=== PATIENT | female | born 1985 | race American Indian/Alaskan Native ===

== ENCOUNTER 2016-06-26 20:28 | Emergency (ER) | payer OTHER ==
[2016-06-26] MEDS ORDERED: TYLENOL PO ONE (21:29)
[2016-06-26] MEDS ORDERED: TYLENOL ONE (21:29)
--- NOTE | 2016-06-27 00:28 | Emergency Department Report ---
- General Chief Complaint: Pain General Stated Complaint: SORE THROAT/BODY ACHES/HEADACHE Time Seen by Provider: 06/26/16 23:54 Source: patient Mode of arrival: Ambulatory Limitations: No Limitations - History of Present Illness Initial Comments: Patient complains of sudden onset of nasal congestion, sneezing, scratchy throat , generalized body aches yesterday morning. Denies other associated symptoms including fever, chills, nausea, vomiting, cough, headaches, dizziness or blurred vision, developmental flank pain, female symptoms. States no relief with baby Motrin x 1. Reports feeling perfectly fine the day/night prior. Patient has high blood pressure pressure for which she takes amlodipine for. Denies signs and symptoms of elevated blood pressure. LMP 06/05/16. - Related Data Home Medications Medication Instructions Recorded Confirmed Last Taken amLODIPine [Norvasc] 5 mg PO DAILY 02/28/16 06/26/16 06/26/16 Previous Rx's Medication Instructions Recorded Last Taken Type Ibuprofen [Motrin] 600 mg PO Q8H PRN #15 tablet 06/27/16 Unknown Rx Loratadine/Pseudoephedrine 1 tab PO Q12H #30 tablet 06/27/16 Unknown Rx [Claritin-D 12HR] Allergies Allergy/AdvReac Type Severity Reaction Status Date / Time No Known Allergies Allergy Verified 03/08/15 21:48 ED Review of Systems ROS: Stated complaint: SORE THROAT/BODY ACHES/HEADACHE Other details as noted in HPI Comment: All other systems reviewed and negative ED Past Medical Hx - Past Medical History Previous Medical History?: Yes Hx Hypertension: Yes - Surgical History Past Surgical History?: No - Social History Smoking Status: Never Smoker Substance Use Type: None - Medications Home Medications: Home Medications Medication Instructions Recorded Confirmed Last Taken Type amLODIPine [Norvasc] 5 mg PO DAILY 02/28/16 06/26/16 06/26/16 History Ibuprofen [Motrin] 600 mg PO Q8H PRN #15 tablet 06/27/16 Unknown Rx Loratadine/Pseudoephedrine 1 tab PO Q12H #30 tablet 06/27/16 Unknown Rx [Claritin-D 12HR] ED Physical Exam - General Limitations: No Limitations General appearance: alert, in no apparent distress - Head Head exam: Present: atraumatic, normocephalic, normal inspection - Eye Eye exam: Present: normal appearance, PERRL, EOMI - ENT ENT exam: Present: normal exam, normal orophraynx, mucous membranes moist, TM's normal bilaterally, normal external ear exam - Neck Neck exam: Present: normal inspection, full ROM. Absent: tenderness, meningismus, lymphadenopathy - Respiratory Respiratory exam: Present: normal lung sounds bilaterally. Absent: respiratory distress, wheezes, rales, rhonchi, stridor, chest wall tenderness, accessory muscle use, decreased breath sounds, prolonged expiratory - Cardiovascular Cardiovascular Exam: Present: regular rate, normal rhythm - GI/Abdominal GI/Abdominal exam: Present: soft, normal bowel sounds. Absent: distended, tenderness - Extremities Exam Extremities exam: Present: normal inspection, full ROM. Absent: tenderness - Back Exam Back exam: Present: normal inspection. Absent: tenderness, CVA tenderness (R), CVA tenderness (L) - Neurological Exam Neurological exam: Present: alert, oriented X3, normal gait, reflexes normal. Absent: motor sensory deficit - Psychiatric Psychiatric exam: Present: normal affect, normal mood - Skin Skin exam: Present: warm, dry, intact, normal color. Absent: rash, cyanosis, diaphoretic, erythema, petechiae, pallor ED Course Vital Signs 06/26/16 06/26/16 06/26/16 21:22 21:33 23:28 Temperature 98.2 F 98.4 F Pulse Rate 82 72 Respiratory 16 18 Rate Blood Pressure 150/99 Blood Pressure 157/104 [Right] O2 Sat by Pulse 16 L 100 Oximetry Critical care attestation.: If time is entered above; I have spent that time in minutes in the direct care of this critically ill patient, excluding procedure time. ED Disposition Clinical Impression: URI (upper respiratory infection) Qualifiers: URI type: unspecified URI Qualified Code(s): J06.9 - Acute upper respiratory infection, unspecified Disposition: DISCHARGED TO HOME OR SELFCARE Is pt being admited?: No Does the pt Need Aspirin: No Condition: Stable Instructions: Upper Respiratory Infection (ED) Prescriptions: Ibuprofen [Motrin] 600 mg PO Q8H PRN #15 tablet PRN Reason: Pain Loratadine/Pseudoephedrine [Claritin-D 12HR] 1 tab PO Q12H #30 tablet Referrals: PRIMARY CARE,MD [Primary Care Provider] - 3-5 Days [facility] [Outside] - 3-5 Days
[2016-06-27 00:42] VITALS: BP 166/109
== END 2016-06-27 00:54 | disposition home or self-care (01) ==
LOC: ED 20:28
DX: J06.9 Acute upper respiratory infection, unspecified (principal); M79.1 Myalgia; I10 Essential (primary) hypertension
CPT/HCPCS: 99282

== ENCOUNTER 2018-05-24 12:52 | Outpatient (CLI) | payer BC ==
[2018-05-24 13:56] LABS: Hematocrit 34.5 % (30.3-42.9); Hemoglobin 11.7 gm/dl (10.1-14.3); Mean Corpuscular HGB Conc 34 % (30-34); Mean Corpuscular Volume 87 fl (79-97); Platelet Count 274 K/mm3 (140-440); Red Blood Count 3.96 M/mm3 (3.65-5.03); Red Cell Distribution Width 13.5 % (13.2-15.2)
[2018-05-24 14:10] LABS: Bacteria,Urine 1+ /HPF (Negative); Bilirubin,Urine NEG (Negative); Blood,Urine SM (Negative); Color,Urine Yellow (Yellow); Mucus,Urine FEW /HPF
[2018-05-24 14:16] LABS: Alanine Aminotransferase 6 units/L (7-56); Uric Acid 4.7 mg/dL (3.5-7.6)
[2018-05-24] MEDS ORDERED: NORMODYNE PO SCH (15:00)
[2018-05-24 16:12] VITALS: BP 132/71
== END 2018-05-24 16:22 | disposition home or self-care (01) ==
LOC: TRG 12:52
PROVIDERS: ATTEND Obstetrics & Gynecology
DX: O47.03 False labor before 37 completed weeks of gestation, third trimester (principal); O13.3 Gestational [pregnancy-induced] hypertension without significant proteinuria, third trimester; Z3A.36 36 weeks gestation of pregnancy
CPT/HCPCS: 36415; 59025; 81001; 82565; 83615; 84450; 84460; 84550; 85027

== ENCOUNTER 2018-05-29 19:20 | Inpatient (IN) | payer BC ==
[2018-05-29 21:13] LABS: Hematocrit 32.5 % (30.3-42.9); Hemoglobin 10.9 gm/dl (10.1-14.3); Mean Corpuscular HGB Conc 34 % (30-34); Mean Corpuscular Volume 88 fl (79-97); Platelet Count 249 K/mm3 (140-440); Red Blood Count 3.71 M/mm3 (3.65-5.03); Red Cell Distribution Width 14.4 % (13.2-15.2)
[2018-05-29] MEDS ORDERED: XYLOCAINE 2% INFILTRATI ONE (22:03)
[2018-05-29] MEDS ORDERED: ZOFRAN IV PRN (22:03)
[2018-05-29] MEDS ORDERED: PHENERGAN PO PRN (22:03)
[2018-05-29] MEDS ORDERED: NARCAN 0.4 MG/1 ML IV PRN (22:03)
[2018-05-29] MEDS ORDERED: CERVIDIL VG ONE (22:03)
[2018-05-29] MEDS ORDERED: BRETHINE IVP PRN (22:03)
[2018-05-29] MEDS ORDERED: MINERAL OIL PO PRN (22:03)
[2018-05-29] MEDS ORDERED: BRETHINE SUB-Q PRN (22:03)
[2018-05-29] MEDS ORDERED: SUBLIMAZE IV PRN (22:03)
[2018-05-29] MEDS ORDERED: STADOL IV PRN (22:03)
[2018-05-29] MEDS ORDERED: PITOCin/NS 30 UNIT/500ML 30 UNITS/500 ML BAG IV SCH (23:00)
[2018-05-29] MEDS ORDERED: LACTATED RINGERS 1,000 ML IV SCH (23:00)
[2018-05-29] MEDS ORDERED: PITOCin/NS 20 UNIT/1000ML DRIP 20 UNITS/1,000 ML BAG IV SCH (23:00)
--- NOTE | 2018-05-29 23:57 | History and Physical Report ---
History of Present Illness Date of examination: 05/29/18 Date of admission: 05/29/18 19:20 Chief complaint: IOL for preeclampsia History of present illness: This is a 32 yo G P at 36 weeks sent over by [facility] for IOL for elevated BP. Patient has been non compliant in having 24 hrs and had appt today with elevated BP. She denies any fonseca, bv, nor scotomata. Past History Past Medical History: no pertinent history Past Surgical History: no surgical history Family/Genetic History: none Social history: no significant social history, single. denies: smoking, alcohol abuse, prescription drug abuse - Obstetrical History Expected Date of Delivery: 06/19/18 Actual Gestation: 37 Week(s) 1 Day(s) : 5 Para: 4 Hx # Term Pregnancies: 4 Number of Pregnancies: 0 Spontaneous Abortions: 0 Induced : 0 Number of Living Children: 4 Medications and Allergies Allergies Allergy/AdvReac Type Severity Reaction Status Date / Time No Known Allergies Allergy Verified 03/29/18 11:33 Home Medications Medication Instructions Recorded Confirmed Last Taken Type amLODIPine [Norvasc] 5 mg PO DAILY 02/28/16 06/26/16 06/26/16 History Ibuprofen [Motrin] 600 mg PO Q8H PRN #15 tablet 06/27/16 Unknown Rx Loratadine/Pseudoephedrine 1 tab PO Q12H #30 tablet 06/27/16 Unknown Rx [Claritin-D 12HR] Labetalol [Normodyne TAB] 100 mg PO BID #30 tablet 03/29/18 Unknown Rx Active Meds: Active Medications Butorphanol Tartrate (Stadol) 2 mg IV Q2H PRN PRN Reason: Pain , Severe (7-10) Ephedrine Sulfate (Ephedrine Sulfate) 10 mg IV Q2M PRN PRN Reason: Hypotension Fentanyl (Sublimaze) 100 mcg IV Q2H PRN PRN Reason: Labor Pain Lactated Ringer's (Lactated Ringers) 1,000 mls @ 125 mls/hr IV DIRECT MANN Oxytocin/Sodium Chloride (Pitocin/Ns 20 Unit/1000ml Drip) 20 units in 1,000 mls @ 125 mls/hr IV DIRECT MANN Oxytocin/Sodium Chloride (Pitocin/Ns 30 Unit/500ml) 30 units in 500 mls @ 1 mls/hr IV TITR MANN; Protocol Mineral Oil (Mineral Oil) 30 ml PO QHS PRN PRN Reason: Constipation Naloxone HCl (Narcan 0.4 Mg/1 Ml) 0.1 mg IV Q2MIN PRN PRN Reason: Res Rate </= 8 or 02 SAT < 92% Ondansetron HCl (Zofran) 4 mg IV Q8H PRN PRN Reason: Nausea And Vomiting Promethazine HCl (Phenergan) 25 mg PO Q6H PRN PRN Reason: Nausea And Vomiting Terbutaline Sulfate (Brethine) 0.25 mg SUB-Q ONCE PRN PRN Reason: Hyperstimulation/Hypertonicity Terbutaline Sulfate (Brethine) 0.25 mg IVP ONCE PRN PRN Reason: Hyperstimulation/Hypertonicity Review of Systems All systems: negative - Vital Signs Vital signs: Vital Signs Pulse BP Pulse Ox 86 176/99 100 05/29/18 19:37 05/29/18 19:37 05/29/18 19:37 Temp Pulse Resp BP Pulse Ox 98.1 F 89 16 154/104 97 05/29/18 20:16 05/29/18 23:48 05/29/18 20:16 05/29/18 20:16 05/29/18 23:48 - Physical Exam Breasts: Positive: normal Cardiovascular: Regular rate, Normal S1 Lungs: Positive: Clear to auscultation, Normal air movement Abdomen: Positive: normal appearance, soft, normal bowel sounds. Negative: distention, tenderness, guarding Genitourinary (Female): Positive: normal external genitalia, normal perenium Vagina: Positive: normal moisture Uterus: Positive: normal size, normal contour Anus/Rectum: Positive: normal perianal skin Extremities: Positive: normal Deep Tendon Reflex Grade: Normal +2 - Obstetrical FHR: category 1 Uterine Contraction Monitor Mode: Palpation Cervical Dilatation: 0 Cervical Effacement Percentage: 0 station: 4 Uterine Contraction Pattern: Regular Uterine Tone Measurement Phase: Contraction Uterine Contraction Intensity: Mild Results Result Diagrams: 05/29/18 20:30 All other labs normal. Assessment and Plan A/P IUP 37 weeks Preeclampsia non compliant IVF, labs induction of labor with unfavorable cervix - cervidil patient understands risk of induction which can include failure with csec needed close monitor of BP and maternal and status
[2018-05-30] MEDS ORDERED: AMBIEN PO PRN (00:24)
[2018-05-30] MEDS ORDERED: MAGNESIUM SULFATE 2GM/50ML 2 GM/50 ML BAG IV ONE (00:36)
[2018-05-30] MEDS ORDERED: MAGNESIUM SULFATE 4GM/100ML 4 GM/100 ML BAG IV ONE ×2 (00:36→09:22)
[2018-05-30] MEDS: NORMODYNE PO SCH ×3 (01:35→22:26)
[2018-05-30] MEDS ORDERED: PEPCID IV ONE (05:03)
[2018-05-30] MEDS ORDERED: BICITRA PO ONE (05:03)
[2018-05-30] MEDS ORDERED: REGLAN IV ONE (05:03)
[2018-05-30] MEDS ORDERED: AMPICILLIN/NS 2 GM/100 ML 2 GM/100 ML BAG IV ONE (05:04)
--- NOTE | 2018-05-30 05:11 | Event Note ---
Date: 05/30/18 Patient admitted for IOL and review of strip noted to have deep variables, miniminal variability, occ lates and at the time we discussed mgt which includes change tx from cervidil which was pulled and starting low dose pitocin as patient has unfavorable cervix. At this time it was noted to proceed with csec secondary to NRFHT.
[2018-05-30] MEDS ORDERED: LACTATED RINGERS 1,000 ML IV SCH (06:00)
[2018-05-30] MEDS ORDERED: PITOCin/NS 20 UNIT/1000ML DRIP 20 UNITS/1,000 ML BAG IV SCH ×3 (06:00→10:00)
[2018-05-30 06:22] LABS: Basophils % (Auto) 0.4 % (0.0-1.8); Eosinophils % (Auto) 0.2 % (0.0-4.3); Hematocrit 31.3 % (30.3-42.9); Hemoglobin 10.4 gm/dl (10.1-14.3); Lymphocytes # (Auto) 0.8 K/mm3 (1.2-5.4); Lymphocytes % (Auto) 14.1 % (13.4-35.0); Mean Corpuscular HGB Conc 33 % (30-34); Mean Corpuscular Volume 90 fl (79-97); Monocytes # (Auto) 0.6 K/mm3 (0.0-0.8); Platelet Count 224 K/mm3 (140-440); Red Cell Distribution Width 14.2 % (13.2-15.2)
[2018-05-30] MEDS ORDERED: ANCEF/STERILE WATER 2 GM/20 ML 0 GM/0 ML SYRINGE IV ONE (06:47)
[2018-05-30] MEDS ORDERED: ANCEF/STERILE WATER 2 GM/20 ML 2 GM/20 ML SYRINGE IV ONE (07:17)
[2018-05-30] MEDS ORDERED: SUBLIMAZE ONE (08:41)
[2018-05-30] MEDS ORDERED: NEO SYNEPHRINE/NS Syringe(OR USE) IV ONE (08:43)
[2018-05-30] MEDS ORDERED: ZOFRAN ONE (08:43)
[2018-05-30] MEDS ORDERED: LANSINOH TP PRN ×2 (09:05→09:19)
[2018-05-30] MEDS ORDERED: SENOKOT PO PRN (09:05)
[2018-05-30] MEDS ORDERED: ANUCORT-HC PR PRN (09:05)
[2018-05-30] MEDS ORDERED: TUCKS PAD TP PRN ×2 (09:05→09:19)
[2018-05-30] MEDS ORDERED: NARCAN 0.4 MG/1 ML IV PRN ×2 (09:05→09:19)
[2018-05-30] MEDS ORDERED: MILK OF MAGNESIA PO PRN (09:05)
[2018-05-30] MEDS ORDERED: TYLENOL PO PRN (09:05)
[2018-05-30] MEDS ORDERED: MYLICON PO PRN (09:05)
[2018-05-30] MEDS ORDERED: PHENERGAN PR PRN (09:05)
[2018-05-30] MEDS ORDERED: NORCO 5/325 PO PRN (09:05)
[2018-05-30] MEDS ORDERED: MORPHINE IV PRN (09:05)
--- NOTE | 2018-05-30 09:11 | Procedure Note ---
OB Delivery Note - Delivery Date of Delivery: 05/30/18 Surgeon: JACKIE AGUILERA Estimated blood loss: other (600cc) - Section Preop diagnosis: nonreassuring FHR tracing Postop diagnosis: same section procedure: section Disposition: PACU Complications: none - Infant A at 1 minute: 8 at 5 minutes: 9 Gender: Female (6 lbs 2 oz)
--- NOTE | 2018-05-30 09:18 | Operative Report ---
Operative Report Operative Report: DATE OF OPERATION: 05/30/18 PREOPERATIVE DIAGNOSES: 1. Intrauterine gestation at 37 weeks 2. NRFHT with late decles 3. Preeclampsia 4. Intolerance to labor 5. Desires permanatn infertility POSTOPERATIVE DIAGNOSES: 1-5 TRAVIS OPERATION PERFORMED: Primary low transverse section. , BTL SURGEON: Carmelita Zambrano MD ANESTHESIA: Epidural. COMPLICATIONS: None. ESTIMATED BLOOD LOSS: 600 mL. DRAINS: Woodall catheter to the bladder. SPECIMENS TO PATHOLOGY: Cord blood for routine testing. OPERATIVE FINDINGS: A viable female with Apgars of 8 and 9 and birthweight of 6 pounds 2 ounces was delivered from a cephalic presentation, persistent occiput posterior position. The cord contained 3 vessels. There was normal anterior fundal p lacenta. The amniotic fluid was clear. The uterus, fallopian tubes and ovaries were normal. DESCRIPTION OF OPERATION: The patient was brought to the operating suite in stable condition with epidural anesthesia on board and an indwelling catheter in place in the bladder. The patient was placed supine on the operating room table and rolled to her left side with a wedge. The abdomen was prepped and draped in standard fashion for section. After testing with forceps to assure an adequate anesthetic level, the surgery was commenced. We had counseled the patient extensively re garding the risks of the surgery including but not limited to stroke, embolus, phlebitis, pain, infection, hemorrhage, as well as injury to the and the internal organs such as the bowel, bladder, blood vessels, nerves, kidneys, ureters and pelvic organs. The patient was aware of the postoperative morbidity issues and recovery timeframes. The patient was aware she can form adhesions, which can result in obstruction of loop of bowel or ureter or chronic pain. She was aware that should she have hemorrhage and require blood transfusion, there was a small chance for exposure to hepatitis or HIV disease. With the scalpel, a Pfannenstiel skin incision was made. Dissection was carried down sharply through the subcutaneous tissues and fascia in a transverse plane with the scalpel, electrocautery and curved Colon scissors. The fascia was sharply freed up superiorly and inferiorly from the underlying rectus muscles, which were bluntly and sharply divided. The peritoneum was entered carefully in a clear space with a curved hemostat. The peritoneal incision was then extended vertically with Metzenbaum scissors. A retractor and bladder blade were placed. A bladder flap was created by incising transversely through the peritoneum and vesicouterine fold and then bluntly dissecting the bladder distally. With the scalpel, a low transverse hysterotomy was commenced. The serosa and myometrium were scored with the scalpel. The uterine cavity was actually entered bluntly with a curved hemostat. The uterine incision was then extended laterally with the gas welding machine operator's fingers. An intrauterine hand was placed and the head of the was brought up out of the pelvis into the uterine incision. With fundal pressure, he was delivered without difficulty. The nasopharynx and oropharynx were suctioned. The cord was doubly clamped and transected. The infant was then handed off to the nursery personnel. Apgars were good at 8 and 9. A cord pH was obtained, which subsequently revealed a normal value. Further cord blood was collected for routine testing. The placenta was manually removed. The uterine cavity was then curetted with a dry sponge and freed of the remaining membranes. The edges of the uterine incision were grasped with Mcconnell clamps. With the massage and the Pitocin, the uterus began to firm up normally. The uterine incision was then closed in 2 layers of 0 Vicryl sutures. The first suture was placed to the endometrium and myometrium. The second suture was placed through the endopelvic fascia and also reincorporated the bladder flap peritoneum. Peritoneal lavage was then performed. The pelvis and gutters were irrigated and suctioned and cleared of all blood and clots and amniotic fluid. The uterine incision was reinspected to assure hemostasis. The uterus, tubes and ovaries were inspected and were normal. Attention was turned to the right fallopian tube, which was grasped with Sherin clamp using a modified Flako method, a 2 cm of segment of tube ligated x2, transected and specimen was sent to pathology. Attention was then turned to the left fallopian tube, which was grasped with Garner clamp again using a modified Flako method, a 2 cm segment of tube was ligated x2 and transected. Hemostasis was visualized bilaterally Once we were satisfied with the hemostasis, attention was turned to closure of the abdominal incision. The peritoneum, muscles and fascia were closed in layers using 0-Vicryl sutures. The subcutaneous tissue was closed with 3-0 plain sutures. The skin was closed with a subcuticular suture of 4-0 Vicryl followed by benzoin, Steri-Strips and a Telfa dressing. The patient was moved to the recovery room in stable condition with the Woodall catheter draining clear urine. Instruments, sponge and needle counts were reported as correct. Estimated blood loss was 600 mL. There were no complications.
[2018-05-30] MEDS ORDERED: DILAUDID IM ONE (09:33)
[2018-05-30] MEDS ORDERED: DECADRON ONE (09:42)
[2018-05-30] MEDS ORDERED: MARCAINE 0.5% INFILTRATI ONE (09:42)
[2018-05-30] MEDS ORDERED: D5LR 1,000 ML IV SCH (10:00)
[2018-05-30] MEDS ORDERED: NORMODYNE PO SCH (10:00)
[2018-05-30] MEDS ORDERED: SODIUM CHLORIDE FLUSH SYRINGE 10 ML IV NR ×2 (10:00)
[2018-05-30] MEDS ORDERED: MAGNESIUM SULFATE 40 GM in NACL 0.9% 1000 ML 1,000 ML IV SCH (10:00)
--- NOTE | 2018-05-30 10:28 | Anesthesia Day of Surgery ---
Anesthesia Day of Surgery - Day of Surgery Patient Examined: Yes Patient H&P Reviewed: Yes Patient is NPO: Yes Beta Blockers: No Cardiac Clearance: No Pulmonary Clearance: No
--- NOTE | 2018-05-30 10:31 | Anesthesia Consultation ---
Anesthesia Consult and Med Hx Date of service: 05/30/18 - Airway Anesthetic Teeth Evaluation: Good ROM Head & Neck: Adequate Mental/Hyoid Distance: Adequate - Pulmonary Exam CTA: Yes - Cardiac Exam Cardiac Exam: No Murmur - Pre-Operative Health Status ASA Pre-Surgery Classification: ASA3 Proposed Anesthetic Plan: Spinal Nerve Block: Bilateral quadratus lumborum - Pulmonary Hx Asthma: No - Cardiovascular System Hx Hypertension: Yes - Central Nervous System Hx Seizures: No Hx Psychiatric Problems: No - Endocrine Hx Renal Disease: No Hx Hypothyroidism: No Hx Hyperthyroidism: No - Hematic Hx Anemia: No Hx Sickle Cell Disease: No - Other Systems Hx Alcohol Use: No
[2018-05-30] MEDS ORDERED: MAGNESIUM SULFATE 40GM/1000ML 40 GM/1,000 ML BAG IV ONE (10:36)
--- NOTE | 2018-05-30 11:15 | Progress Note ---
Subjective Date of service: 05/30/18 (block note) Principal diagnosis: s/p c section Interval history: 32 y/o term parturient presents for first c section delivery. Surgeon requests block for postop analgesia. Informed consent obtained. In Pacu, bilateral quadratus lumborum blocks performed under clean conditions after chlorhexidine prep. Block was technically easy and 30 ml 0.25% bupivacaine with 4 mg decadron placed each side via 21 gauge b bevel needle under ultrasound guidance. Pt tolerated well. Objective - Constitutional Vitals: Vital Signs - 12hr 05/29/18 05/29/18 05/29/18 23:15 23:20 23:25 Pulse Rate 89 95 H 95 H Blood Pressure O2 Sat by Pulse 97 99 97 Oximetry 05/29/18 05/29/18 05/29/18 23:33 23:38 23:43 Pulse Rate 89 96 H Blood Pressure O2 Sat by Pulse 95 98 96 Oximetry 05/29/18 05/29/18 05/29/18 23:48 23:53 23:58 Pulse Rate 89 91 H 90 Blood Pressure O2 Sat by Pulse 97 97 96 Oximetry 05/30/18 05/30/18 05/30/18 00:03 00:08 00:13 Pulse Rate 86 83 86 Blood Pressure O2 Sat by Pulse 96 98 98 Oximetry 05/30/18 05/30/18 05/30/18 00:18 00:23 00:28 Pulse Rate 96 H 94 H 95 H Blood Pressure O2 Sat by Pulse 97 98 99 Oximetry 05/30/18 05/30/18 05/30/18 00:44 00:45 00:49 Pulse Rate 89 85 93 H Blood Pressure 164/94 O2 Sat by Pulse 98 98 Oximetry 05/30/18 05/30/18 05/30/18 00:54 00:59 01:04 Pulse Rate 92 H 88 94 H Blood Pressure O2 Sat by Pulse 98 97 97 Oximetry 05/30/18 05/30/18 05/30/18 01:09 01:14 01:18 Pulse Rate 89 90 86 Blood Pressure 153/88 O2 Sat by Pulse 97 97 Oximetry 05/30/18 05/30/18 05/30/18 01:19 01:24 01:29 Pulse Rate 88 87 96 H Blood Pressure O2 Sat by Pulse 97 97 97 Oximetry 05/30/18 05/30/18 05/30/18 01:34 01:39 01:44 Pulse Rate 85 88 99 H Blood Pressure O2 Sat by Pulse 97 96 96 Oximetry 05/30/18 05/30/18 05/30/18 01:48 01:49 01:54 Pulse Rate 98 H 100 H 101 H Blood Pressure 126/76 O2 Sat by Pulse 96 96 Oximetry 05/30/18 05/30/18 05/30/18 01:59 02:00 02:04 Pulse Rate 98 H 100 H 99 H Blood Pressure O2 Sat by Pulse 95 94 96 Oximetry 05/30/18 05/30/18 05/30/18 02:09 02:14 02:18 Pulse Rate 94 H 96 H 95 H Blood Pressure 135/80 O2 Sat by Pulse 96 96 94 Oximetry 05/30/18 05/30/18 05/30/18 02:19 02:24 02:29 Pulse Rate 93 H 99 H 98 H Blood Pressure O2 Sat by Pulse 96 96 96 Oximetry 05/30/18 05/30/18 05/30/18 02:34 02:39 02:44 Pulse Rate 95 H 101 H 89 Blood Pressure O2 Sat by Pulse 96 98 96 Oximetry 05/30/18 05/30/18 05/30/18 02:48 02:49 02:54 Pulse Rate 90 91 H 89 Blood Pressure 130/75 O2 Sat by Pulse 96 97 Oximetry 05/30/18 05/30/18 05/30/18 02:59 03:04 03:09 Pulse Rate 91 H 98 H 83 Blood Pressure O2 Sat by Pulse 97 100 100 Oximetry 05/30/18 05/30/18 05/30/18 03:14 03:18 03:19 Pulse Rate 89 96 H 99 H Blood Pressure 132/93 O2 Sat by Pulse 100 99 Oximetry 05/30/18 05/30/18 05/30/18 03:24 03:29 03:34 Pulse Rate 104 H 97 H 99 H Blood Pressure O2 Sat by Pulse 98 98 97 Oximetry 05/30/18 05/30/18 05/30/18 03:39 03:44 03:48 Pulse Rate 105 H 86 89 Blood Pressure 135/84 O2 Sat by Pulse 97 97 Oximetry 05/30/18 05/30/18 05/30/18 03:55 04:00 04:05 Pulse Rate 91 H 93 H 90 Blood Pressure O2 Sat by Pulse 98 98 98 Oximetry 05/30/18 05/30/18 05/30/18 04:10 04:15 04:18 Pulse Rate 93 H 92 H 86 Blood Pressure 134/76 O2 Sat by Pulse 97 97 Oximetry 05/30/18 05/30/18 05/30/18 04:20 04:25 04:30 Pulse Rate 91 H 95 H 93 H Blood Pressure O2 Sat by Pulse 98 98 98 Oximetry 05/30/18 05/30/18 05/30/18 04:35 04:40 04:45 Pulse Rate 97 H 98 H 95 H Blood Pressure O2 Sat by Pulse 97 97 97 Oximetry 05/30/18 05/30/18 05/30/18 04:48 04:50 04:55 Pulse Rate 95 H 104 H 95 H Blood Pressure 130/79 O2 Sat by Pulse 98 96 Oximetry 05/30/18 05/30/18 05/30/18 05:00 05:05 05:10 Pulse Rate 95 H 90 94 H Blood Pressure O2 Sat by Pulse 96 98 97 Oximetry 05/30/18 05/30/18 05/30/18 05:15 05:19 05:20 Pulse Rate 87 100 H 100 H Blood Pressure 150/84 O2 Sat by Pulse 97 99 Oximetry 05/30/18 05/30/18 05/30/18 05:54 05:59 06:04 Pulse Rate 90 89 92 H Blood Pressure O2 Sat by Pulse 98 97 98 Oximetry 05/30/18 05/30/18 05/30/18 06:09 06:14 06:19 Pulse Rate 87 105 H 114 H Blood Pressure O2 Sat by Pulse 98 98 97 Oximetry 05/30/18 05/30/18 05/30/18 06:24 06:29 06:34 Pulse Rate 111 H 102 H 103 H Blood Pressure O2 Sat by Pulse 97 99 98 Oximetry 05/30/18 05/30/18 05/30/18 06:39 10:51 10:53 Pulse Rate 98 H 83 83 Blood Pressure 154/88 O2 Sat by Pulse 99 97 Oximetry 05/30/18 05/30/18 05/30/18 10:56 11:01 11:05 Pulse Rate 83 81 79 Blood Pressure O2 Sat by Pulse 94 96 98 Oximetry - Labs CBC & Chem 7: 05/30/18 06:10 Labs: Abnormal lab results 05/30/18 Range/Units 06:10 RBC 3.50 L (3.65-5.03) M/mm3 [place] % (Auto) 10.0 H (0.0-7.3) % Lymph # 0.8 L (1.2-5.4) K/mm3 Seg Neutrophils % 75.3 H (40.0-70.0) %
[2018-05-30] MEDS: TORADOL IV SCH ×2 (13:57→22:25)
[2018-05-30] MEDS: MORPHINE IV PRN ×2 (14:20→18:58)
[2018-05-30 20:18] LABS: Hematocrit 34.7 % (30.3-42.9); Hemoglobin 11.5 gm/dl (10.1-14.3)
--- NOTE | 2018-05-30 22:01 | Post Anesthesia Evaluation ---
- Post Anesthesia Evaluation Patient Participated: Yes Airway Patent: Yes Stable Respiratory Function: Yes Nausea/Vomiting: No Temp > 96.8F: Yes Pain Manageable: Yes Adequeate Hydration: Yes Anesthesia Complications: No Block Receding Appropriately: Yes
[2018-05-31] MEDS: TORADOL IV SCH (01:25)
--- NOTE | 2018-05-31 07:39 | Progress Note ---
Assessment and Plan A/P POD1 s/p c/sec NRFHT pree-s/p mag for 24 hrs routine PO orders BP normal labateolol 100 mg po bid transfer MBU to continue care. Subjective - Subjective Date of service: 05/31/18 Principal diagnosis: s/p c section Interval history: This is a 32 yo G P at 36 weeks sent over by [facility] for IOL for elevated BP. Patient has been non compliant in having 24 hrs and had appt today with elevated BP. She denies any fonseca, bv, nor scotomata. Patient reports: appetite normal, voiding normally, pain well controlled : doing well Objective - Vital Signs Latest vital signs: Vital Signs Temp Pulse Resp BP BP Pulse Ox 05/31/18 07:36 73 97 05/31/18 07:31 80 140/80 98 05/31/18 07:26 76 98 05/31/18 07:21 63 96 05/31/18 07:16 67 96 05/31/18 07:11 67 95 05/31/18 07:06 65 95 05/31/18 07:01 65 113/70 95 05/31/18 06:56 66 95 05/31/18 06:51 66 95 05/31/18 06:46 65 96 05/31/18 06:41 65 96 05/31/18 06:36 67 96 05/31/18 06:31 62 112/73 97 05/31/18 06:26 65 97 05/31/18 06:21 63 97 05/31/18 06:16 72 96 05/31/18 06:11 64 96 05/31/18 06:06 64 96 05/31/18 06:01 60 114/71 96 05/31/18 05:56 67 95 05/31/18 05:54 64 94 05/31/18 05:51 63 96 05/31/18 05:46 63 95 05/31/18 05:41 64 96 05/31/18 05:36 78 93 05/31/18 05:31 63 114/65 96 05/31/18 05:26 66 94 05/31/18 05:21 64 94 05/31/18 05:16 64 95 05/31/18 05:11 66 95 05/31/18 05:08 68 94 05/31/18 05:06 64 95 05/31/18 05:01 63 110/66 95 05/31/18 04:56 60 96 05/31/18 04:54 65 94 05/31/18 04:51 65 96 05/31/18 04:46 65 95 05/31/18 04:41 65 96 05/31/18 04:36 71 94 05/31/18 04:31 68 113/74 93 05/31/18 04:26 70 96 05/31/18 04:25 67 94 05/31/18 04:21 63 96 05/31/18 04:16 63 95 05/31/18 04:11 63 96 05/31/18 04:06 62 96 05/31/18 04:05 61 94 05/31/18 04:01 63 108/65 95 05/31/18 03:56 64 96 05/31/18 03:51 62 96 05/31/18 03:48 70 94 05/31/18 03:46 62 95 05/31/18 03:41 64 95 05/31/18 03:36 63 96 05/31/18 03:31 63 113/69 96 05/31/18 03:26 65 95 05/31/18 03:21 64 95 05/31/18 03:16 64 95 05/31/18 03:11 62 95 05/31/18 03:06 63 95 05/31/18 03:03 70 94 05/31/18 03:01 63 118/68 95 05/31/18 02:56 65 95 05/31/18 02:51 64 96 05/31/18 02:46 67 95 05/31/18 02:41 68 95 05/31/18 02:40 68 94 05/31/18 02:36 66 96 05/31/18 02:33 69 94 05/31/18 02:31 67 113/67 96 05/31/18 02:28 72 94 05/31/18 02:26 66 96 05/31/18 02:22 69 94 05/31/18 02:21 64 95 19 02:16 65 96 05/31/18 02:12 67 94 05/31/18 02:11 65 96 05/31/18 02:07 66 94 05/31/18 02:06 65 95 05/31/18 02:01 64 113/69 95 05/31/18 01:57 65 94 05/31/18 01:56 66 94 05/31/18 01:51 65 94 05/31/18 01:46 64 96 05/31/18 01:41 64 95 05/31/18 01:36 64 96 05/31/18 01:31 65 135/77 96 05/31/18 01:26 81 96 05/31/18 01:21 60 96 05/31/18 01:16 61 94 05/31/18 01:11 63 94 05/31/18 01:06 64 96 05/31/18 01:05 72 94 05/31/18 01:01 62 111/70 95 05/31/18 01:00 63 94 05/31/18 00:56 85 95 05/31/18 00:51 64 96 05/31/18 00:46 65 95 05/31/18 00:45 64 94 05/31/18 00:41 64 96 05/31/18 00:36 65 94 05/31/18 00:31 64 116/64 96 05/31/18 00:26 71 94 05/31/18 00:21 74 94 05/31/18 00:19 64 94 05/31/18 00:16 68 96 05/31/18 00:13 80 91 05/31/18 00:11 74 95 05/31/18 00:08 69 94 05/31/18 00:06 64 96 05/31/18 00:03 64 94 05/31/18 00:01 65 121/74 95 05/30/18 23:56 64 96 05/30/18 23:51 66 94 05/30/18 23:50 66 94 05/30/18 23:46 64 96 05/30/18 23:41 63 96 05/30/18 23:36 64 96 05/30/18 23:31 61 135/73 96 05/30/18 23:26 64 97 05/30/18 23:21 64 95 05/30/18 23:16 66 97 05/30/18 23:11 64 96 05/30/18 23:06 70 98 05/30/18 23:01 63 153/87 98 05/30/18 22:56 66 99 05/30/18 22:50 69 99 05/30/18 22:45 72 99 05/30/18 22:40 73 98 05/30/18 22:35 75 99 05/30/18 22:31 75 162/88 05/30/18 22:30 72 99 05/30/18 22:26 72 150/87 05/30/18 22:25 68 150/87 99 05/30/18 22:20 72 99 05/30/18 22:15 73 99 05/30/18 22:10 71 99 05/30/18 22:05 74 100 05/30/18 22:01 71 150/87 05/30/18 22:00 71 98 05/30/18 21:55 72 98 05/30/18 21:50 72 99 05/30/18 21:45 72 99 05/30/18 21:40 77 99 05/30/18 21:35 69 100 05/30/18 21:31 71 147/88 05/30/18 21:30 75 99 05/30/18 21:25 77 100 05/30/18 21:20 73 100 05/30/18 21:15 77 100 05/30/18 21:10 81 100 05/30/18 21:05 76 99 05/30/18 21:01 83 143/91 05/30/18 21:00 91 H 98 05/30/18 20:55 82 99 05/30/18 20:50 81 100 05/30/18 20:47 77 144/80 05/30/18 20:46 97.0 F L 69 16 144/80 99 05/30/18 20:45 74 99 05/30/18 20:40 80 98 05/30/18 20:35 74 99 05/30/18 20:31 78 149/85 05/30/18 20:30 89 99 05/30/18 20:25 71 99 05/30/18 20:20 85 100 05/30/18 20:15 79 98 05/30/18 20:10 73 99 05/30/18 20:05 71 99 05/30/18 20:01 81 140/80 05/30/18 20:00 79 99 05/30/18 19:55 81 100 05/30/18 19:50 78 99 05/30/18 19:45 77 99 05/30/18 19:40 69 99 05/30/18 19:35 72 99 05/30/18 19:31 81 138/81 01/16/19 19:30 80 100 05/30/18 19:25 78 100 05/30/18 19:20 74 99 05/30/18 19:15 76 99 05/30/18 19:10 83 99 05/30/18 19:05 75 99 05/30/18 19:01 90 147/97 05/30/18 19:00 103 H 98 05/30/18 18:55 76 98 05/30/18 18:50 79 98 05/30/18 18:45 73 99 05/30/18 18:40 77 98 05/30/18 18:35 71 99 05/30/18 18:31 74 142/80 99 05/30/18 18:25 75 98 05/30/18 18:21 83 98 05/30/18 18:15 75 99 05/30/18 18:11 72 98 05/30/18 18:05 81 98 05/30/18 18:01 71 142/78 05/30/18 18:00 73 98 05/30/18 17:56 73 98 05/30/18 17:50 80 97 05/30/18 17:45 74 98 05/30/18 17:40 82 98 05/30/18 17:35 73 97 05/30/18 17:31 75 137/77 98 05/30/18 17:25 73 98 05/30/18 17:20 81 98 05/30/18 17:15 76 98 05/30/18 17:10 71 96 05/30/18 17:05 76 97 05/30/18 17:01 74 130/73 05/30/18 17:00 75 98 05/30/18 16:55 67 98 05/30/18 16:50 67 98 05/30/18 16:45 71 98 05/30/18 16:40 70 98 05/30/18 16:35 78 98 05/30/18 16:31 83 136/77 05/30/18 16:30 83 98 05/30/18 16:25 74 98 05/30/18 16:20 72 98 05/30/18 16:15 75 98 05/30/18 16:10 74 99 05/30/18 16:05 71 98 05/30/18 16:01 78 130/76 01/16/19 16:00 92 H 99 05/30/18 15:55 74 98 05/30/18 15:50 71 98 05/30/18 15:45 77 99 05/30/18 15:40 82 98 05/30/18 15:35 80 99 05/30/18 15:31 75 137/79 05/30/18 15:30 80 99 05/30/18 15:25 76 99 05/30/18 15:20 81 99 05/30/18 15:15 79 99 05/30/18 15:10 75 99 05/30/18 15:05 80 98 05/30/18 15:01 87 146/87 05/30/18 15:00 82 98 05/30/18 14:55 82 99 05/30/18 14:50 71 98 05/30/18 14:45 76 98 05/30/18 14:40 83 98 05/30/18 14:35 79 98 05/30/18 14:31 88 151/83 05/30/18 14:30 88 98 05/30/18 14:25 90 99 05/30/18 14:21 77 147/81 05/30/18 14:20 79 98 05/30/18 14:15 72 98 05/30/18 14:10 79 98 05/30/18 14:05 84 98 05/30/18 14:01 81 145/82 05/30/18 14:00 84 98 05/30/18 13:55 79 98 05/30/18 13:50 74 98 05/30/18 13:48 73 148/88 05/30/18 13:45 84 99 05/30/18 13:40 83 98 05/30/18 13:35 81 99 05/30/18 13:31 79 160/92 05/30/18 13:30 85 98 05/30/18 13:25 79 99 05/30/18 13:20 80 97 05/30/18 13:15 71 98 05/30/18 13:10 71 98 05/30/18 13:05 71 97 05/30/18 13:00 71 98 05/30/18 12:55 76 98 05/30/18 12:50 73 98 05/30/18 12:45 77 98 05/30/18 12:40 79 98 05/30/18 12:35 72 98 05/30/18 12:30 72 97 05/30/18 12:26 79 98 05/30/18 12:20 74 97 05/30/18 12:15 78 97 05/30/18 12:10 71 97 05/30/18 12:05 74 97 05/30/18 12:00 85 96 05/30/18 11:55 72 97 05/30/18 11:50 72 97 05/30/18 11:45 72 97 05/30/18 11:40 73 97 05/30/18 11:35 75 97 05/30/18 11:31 73 96 05/30/18 11:25 73 97 05/30/18 11:20 69 97 05/30/18 11:15 81 97 05/30/18 11:10 85 97 05/30/18 11:05 79 98 05/30/18 11:01 81 96 05/30/18 10:56 83 94 05/30/18 10:53 83 154/88 05/30/18 10:51 83 97 05/30/18 10:25 98.3 F 83 18 137/87 Intake and Output 05/30/18 05/30/18 05/31/18 15:59 23:59 07:59 Intake Total 3000 Output Total 1000 Balance 3000 -1000 Intake: IV 3000 Output: Urine 1000 Indwelling Catheter 1000 Other: Total, Output Amount 200 - Exam Breasts: Present: normal Cardiovascular: Present: Regular rate, Normal S1 Lungs: Present: Clear to auscultation, Normal air movement Abdomen: Present: normal appearance, soft, normal bowel sounds. Absent: distention, tenderness, guarding Vulva: both: normal Uterus: Present: normal, firm, fundal height below umbilicus. Absent: bogginess, tenderness Extremities: Present: normal Deep Tendon Reflex Grade: Normal +2 Incision: Present: normal, dry, dressed
[2018-05-31] MEDS ORDERED: CITRATE OF MAGNESIA PO NR (08:30)
[2018-05-31] MEDS ORDERED: BOOSTRIX IM ONE (09:07)
[2018-05-31] MEDS ORDERED: M-M-R II VACCINE SUB-Q ONE (09:07)
[2018-05-31] MEDS: FEOSOL PO SCH (11:26)
[2018-05-31] MEDS: PERCOCET 5/325 PO PRN ×2 (11:26→21:04)
[2018-05-31] MEDS: PRENATAL VITAMIN PO SCH (11:27)
[2018-05-31] MEDS: NORMODYNE PO SCH ×2 (11:27→22:16)
[2018-05-31] MEDS: IBUPROFEN PO PRN (21:02)
[2018-06-01] MEDS: FEOSOL PO SCH (10:00)
[2018-06-01] MEDS: PRENATAL VITAMIN PO SCH (10:00)
[2018-06-01] MEDS: NORMODYNE PO SCH ×2 (10:10→21:59)
--- NOTE | 2018-06-01 12:06 | Progress Note ---
Assessment and Plan - Patient Problems (1) Preeclampsia Current Visit: Yes Status: Acute Plan to address problem: patient demonstrating clinical improvement consider discharge home tomorrow Subjective - Subjective Date of service: 06/01/18 Principal diagnosis: s/p c section Interval history: Patient having some minor incisional pain. She is tolerating her diet. Patient reports: appetite normal, voiding normally, pain well controlled : doing well Objective - Vital Signs Latest vital signs: Vital Signs Temp Pulse Resp BP BP Pulse Ox 06/01/18 08:12 98.7 F 92 H 20 115/94 06/01/18 00:00 98.6 F 94 H 20 124/69 05/31/18 22:16 83 139/84 05/31/18 21:04 20 05/31/18 21:02 20 05/31/18 16:03 98.3 F 81 16 114/69 96 Intake and Output 05/31/18 06/01/18 06/01/18 22:59 06:59 14:59 Intake Total 360 240 320 Balance 360 240 320 Intake: Oral 360 240 320 Other: Total, Intake Amount 360 240 320 # Voids Void 2 1 1 - Exam Abdomen: Present: normal appearance, soft
[2018-06-01] MEDS: IBUPROFEN PO PRN ×2 (12:32→21:58)
[2018-06-01] MEDS: PERCOCET 5/325 PO PRN ×2 (12:32→21:59)
[2018-06-02] MEDS ORDERED: BOOSTRIX IM ONE (06:00)
[2018-06-02] MEDS: IBUPROFEN PO PRN (06:05)
[2018-06-02] MEDS: PERCOCET 5/325 PO PRN ×2 (06:06→16:10)
[2018-06-02] MEDS: FEOSOL PO SCH (10:30)
[2018-06-02] MEDS: NORMODYNE PO SCH (10:30)
[2018-06-02] MEDS: PRENATAL VITAMIN PO SCH (10:30)
--- NOTE | 2018-06-02 11:44 | Progress Note ---
Assessment and Plan - Patient Problems (1) Preeclampsia Current Visit: Yes Status: Acute Plan to address problem: patient doing better discharge home Subjective - Subjective Date of service: 06/02/18 Principal diagnosis: s/p c section Interval history: Patient reports feeling better today. Will increase labetalol dose to 200mg. Patient desires to be discharged Patient reports: appetite normal, voiding normally, pain well controlled : doing well Objective - Vital Signs Latest vital signs: Vital Signs Temp Pulse Resp BP BP BP 06/02/18 11:15 98.4 F 78 19 123/87 06/02/18 07:27 98.3 F 83 20 156/88 06/02/18 06:06 18 06/02/18 06:05 18 06/01/18 23:30 98.7 F 66 16 118/72 06/01/18 22:59 18 06/01/18 22:58 18 06/01/18 21:59 90 20 164/101 164/101 06/01/18 21:58 18 06/01/18 16:25 98.5 F 81 20 124/74 Intake and Output 06/01/18 06/02/18 06/02/18 22:59 06:59 14:59 Intake Total 720 420 200 Balance 720 420 200 Intake: Oral 360 200 Intake, Free Water 360 420 Other: Total, Intake Amount 360 200 Voiding Method Toilet # Voids Void 1 1 - Exam Abdomen: Present: normal appearance Incision: Present: normal
--- NOTE | 2018-06-02 11:46 | Discharge Summary ---
Providers - Providers Date of Admission: 05/29/18 19:20 Date of discharge: 06/02/18 Attending physician: JACKIE AGUILERA MD Primary care physician: JACKIE AGUILERA MD Hospitalization Reason for admission: induction of labor Delivery: Procedure: section, bilateral tubal ligation, primary low transverse Discharge diagnosis: IUP at term delivered Ulysses baby: female Hospital course: Patient admitted for IOL for hypertension. Complicated by NRFHT and patient underwent a primary LTCS. Hypertension management with labetalol. Condition at discharge: Good Disposition: DC-01 TO HOME OR SELFCARE - Discharge Diagnoses (1) Preeclampsia Status: Acute Plan - Discharge Medications Prescriptions: Ferrous Sulfate 325 mg PO BID #60 tablet. Ibuprofen [Motrin] 600 mg PO Q8H PRN #30 tablet PRN Reason: Pain Labetalol [Normodyne TAB] 100 mg PO BID #60 tablet Labetalol [Normodyne TAB] 200 mg PO BID #60 tablet oxyCODONE /ACETAMINOPHEN [Percocet 5/325] 1 tab PO Q6HR PRN #30 tablet PRN Reason: Pain - Provider Discharge Summary Activity: no sex for 6 weeks, no heavy lifting 4 weeks, no strenuous exercise Diet: routine Instructions: routine Additional instructions: [] Smoking cessation referral if applicable(refer to patient education folder for contact #) [] Refer to [employer] Booklet Call your doctor immediately for: * Fever > 100.5 * Heavy vaginal bleeding ( >1 pad per hour) * Severe persistent headache * Shortness of breath * Reddened, hot, painful area to leg or breast * Drainage or odor from incision. * Keep incision clean and dry at all times and follow doctor's instructions regarding bathing/showering schedule postoperative followup in one week - Follow up plan Follow up: JACKIE AGUILERA MD [Primary Care Provider] - 7 Days
[2018-06-02 16:25] VITALS: BP 154/96
== END 2018-06-02 16:43 | disposition home or self-care (01) | DRG 785 ==
LOC: LD 19:20 → OB 05-31 09:45
PROVIDERS: ADMIT Obstetrics & Gynecology; ATTEND Obstetrics & Gynecology
PROC: 10D00Z1 Extraction of Products of Conception, Low, Open Approach (ICD-10-PCS; principal; 2018-05-30)
PROC: 0UB70ZZ Excision of Bilateral Fallopian Tubes, Open Approach (ICD-10-PCS; 2018-05-30)
PROC: 3E0234Z Introduction of Serum, Toxoid and Vaccine into Muscle, Percutaneous Approach (ICD-10-PCS; 2018-05-31)
DX: O76 Abnormality in fetal heart rate and rhythm complicating labor and delivery (principal); O64.0XX0 Obstructed labor due to incomplete rotation of fetal head, not applicable or unspecified; O11.4 Pre-existing hypertension with pre-eclampsia, complicating childbirth; O34.43 Maternal care for other abnormalities of cervix, third trimester; Z3A.37 37 weeks gestation of pregnancy; Z23 Encounter for immunization; Z37.0 Single live birth; Z91.14 Patient's other noncompliance with medication regimen
CPT/HCPCS: 36415; 85014; 85018; 85025; 85027; 86592; 86850; 86900; 86901; 88302; 88307; 90471; 90715; G0378; J0290; J0690; J1100; J1170; J1885; J2270; J2370; J2405; J2590; J2765; J3010; J3475; J7120; J7121

== ENCOUNTER 2018-06-25 05:20 | Inpatient (IN) | payer BC ==
[2018-06-25] MEDS ORDERED: TYLENOL PO PRN (05:28)
[2018-06-25 06:08] LABS: Basophils % (Auto) 0.5 % (0.0-1.8); Eosinophils # (Auto) 0.1 K/mm3 (0.0-0.4); Eosinophils % (Auto) 1.3 % (0.0-4.3); Hematocrit 40.2 % (30.3-42.9); Hemoglobin 13.2 gm/dl (10.1-14.3); Lymphocytes # (Auto) 2.2 K/mm3 (1.2-5.4); Lymphocytes % (Auto) 39.9 % (13.4-35.0); Mean Corpuscular HGB Conc 33 % (30-34); Mean Corpuscular Volume 90 fl (79-97); Monocytes # (Auto) 0.4 K/mm3 (0.0-0.8); Monocytes % (Auto) 7.4 % (0.0-7.3); Platelet Count 334 K/mm3 (140-440); Red Blood Count 4.48 M/mm3 (3.65-5.03); Red Cell Distribution Width 18.2 % (13.2-15.2)
[2018-06-25] MEDS: LACTATED RINGERS 1,000 ML IV SCH ×2 (06:08→17:41)
[2018-06-25] MEDS: MAGNESIUM SULFATE 40GM/1000ML 40 GM/1,000 ML BAG IV SCH (06:08)
[2018-06-25 06:27] LABS: Alanine Aminotransferase 9 units/L (7-56)
[2018-06-25 06:31] LABS: Uric Acid 5.9 mg/dL (3.5-7.6)
[2018-06-25] MEDS ORDERED: NORMODYNE PO ONE (07:00)
[2018-06-25 07:05] LABS: Bilirubin,Urine NEG (Negative); Blood,Urine NEG (Negative); Color,Urine Straw (Yellow); Mucus,Urine FEW /HPF; Protein,Urine <15 mg/dL mg/dL (Negative); Urobilinogen,Urine < 2.0 mg/dL (<2.0); WBC,Urine < 1.0 /HPF (0.0-6.0)
[2018-06-25] MEDS ORDERED: MORPHINE IV ONE ×2 (09:30→13:30)
[2018-06-25] MEDS ORDERED: NORMODYNE PO SCH (10:00)
--- NOTE | 2018-06-25 11:40 | Cat Scan Report ---
CT ABDOMEN PELVIS WITH CONTRAST: HISTORY: Postoperative abdominal pain. COMPARISON: none. TECHNIQUE: Helical CT in 1.25mm intervals following IV contrast. Sagittal and coronal reconstructions. FINDINGS: Lung bases: Normal. Liver: There is mild diffuse fatty change throughout the liver. No enlargement, surface nodularity or focal mass. Biliary system: Normal. Pancreas: Normal. Spleen: Normal. Kidneys/ureters/bladder: The kidneys and ureters are normal. The bladder is decompressed with a Woodall catheter. No gross abnormality. Adrenal glands: Normal. Aorta: Normal. Intestines: Within normal limits given no oral contrast was administered. Appendix: Normal. Pelvic viscera: The uterus is normal size and contour. There is mild enhancement of the endometrial cavity. Mild irregularity of the anterior lower uterine segment myometrium to the left of midline is identified which may represent postsurgical changes, correlate with history. No obvious uterine fibroids. A 1.8 cm left ovarian cyst is identified. The right ovary is unremarkable. Ascites: None. No evidence for pelvic abscess. Adenopathy: None. Musculoskeletal: Normal. IMPRESSION: Surgical changes in the endometrial canal? Small myometrial defect in the lower anterior uterine segment to the left of midline which is presumably postsurgical in nature. 1.8 cm left ovarian cyst. Mild fatty infiltration of the liver parenchyma.
--- NOTE | 2018-06-25 12:57 | History and Physical Report ---
History of Present Illness Date of examination: 06/25/18 Date of admission: 06/25/18 05:20 Chief complaint: transfer in from [facility] for elevated BP History of present illness: This is a 32 yo Past History Past Medical History: hypertension Past Surgical History: section Social history: . denies: smoking, alcohol abuse, prescription drug abuse - Obstetrical History : 5 Medications and Allergies Allergies Allergy/AdvReac Type Severity Reaction Status Date / Time No Known Allergies Allergy Verified 06/25/18 05:27 Home Medications Medication Instructions Recorded Confirmed Last Taken Type amLODIPine [Norvasc] 5 mg PO DAILY 02/28/16 06/01/18 06/26/16 History Ibuprofen [Motrin] 600 mg PO Q8H PRN #15 tablet 06/27/16 06/01/18 Unknown Rx Loratadine/Pseudoephedrine 1 tab PO Q12H #30 tablet 06/27/16 06/01/18 Unknown Rx [Claritin-D 12HR] Labetalol [Normodyne TAB] 100 mg PO BID #30 tablet 03/29/18 06/01/18 Unknown Rx Ferrous Sulfate 325 mg PO BID #60 tablet. 05/30/18 Unknown Rx Ibuprofen [Motrin] 600 mg PO Q8H PRN #30 tablet 05/30/18 Unknown Rx Labetalol [Normodyne TAB] 100 mg PO BID #60 tablet 05/30/18 Unknown Rx oxyCODONE /ACETAMINOPHEN [Percocet 1 tab PO Q6HR PRN #30 tablet 05/30/18 Unknown Rx 5/325] Labetalol [Normodyne TAB] 200 mg PO BID #60 tablet 06/02/18 Unknown Rx Active Meds: Active Medications Acetaminophen (Tylenol) 650 mg PO Q4H PRN PRN Reason: Pain MILD(1-3)/Fever >100.5/KIM Last Admin: 06/25/18 06:12 Dose: 650 mg Documented by: Lactated Ringer's (Lactated Ringers) 1,000 mls @ 75 mls/hr IV DIRECT MANN Last Admin: 06/25/18 06:08 Dose: 75 mls/hr Documented by: Magnesium Sulfate (Magnesium Sulfate 40gm/1000ml) 40 gm in 1,000 mls @ 50 mls/hr IV DIRECT MANN Last Admin: 06/25/18 06:08 Dose: 2 gm/hr, 50 mls/hr Documented by: Labetalol HCl (Normodyne) 400 mg PO BID MANN Morphine Sulfate (Morphine) 4 mg IV ONCE ONE Stop: 06/25/18 09:53 Oxycodone/Acetaminophen (Percocet 5/325) 2 tab PO Q4H PRN PRN Reason: Pain, Moderate (4-6) - Vital Signs Vital signs: Vital Signs Pulse BP 63 153/99 06/25/18 05:27 06/25/18 05:27 Temp Pulse Resp BP Pulse Ox 97.5 F L 63 20 92/55 98 06/25/18 11:45 06/25/18 12:46 06/25/18 11:45 06/25/18 12:46 06/25/18 11:45 - Physical Exam Breasts: Positive: normal Cardiovascular: Regular rate, Normal S1 Lungs: Positive: Clear to auscultation, Normal air movement Abdomen: Positive: normal appearance, soft, normal bowel sounds. Negative: distention, tenderness, guarding Genitourinary (Female): Positive: normal external genitalia, normal perenium Vulva: both: normal Vagina: Positive: normal moisture Anus/Rectum: Positive: normal perianal skin Deep Tendon Reflex Grade: Normal +2 Results Result Diagrams: 06/25/18 05:37 06/25/18 05:37 Abnormal lab results 06/25/18 06/25/18 Range/Units 05:37 05:37 RDW 18.2 H (13.2-15.2) % Lymph % (Auto) 39.9 H (13.4-35.0) % Sullivan % (Auto) 7.4 H (0.0-7.3) % Creatinine 0.5 L (0.7-1.2) mg/dL All other labs normal. Assessment and Plan A/P 3 weks elevated BP abdominal pain Mag infusion for 24 hrs PIH w/u neg CT scan of abd and pelvix neg continue pain meds continue present mgt
[2018-06-25] MEDS ORDERED: PERCOCET 5/325 PO PRN (13:00)
[2018-06-25] MEDS ORDERED: COLACE PO PRN (16:12)
[2018-06-25] MEDS ORDERED: MYLICON PO PRN (16:12)
[2018-06-25] MEDS ORDERED: SODIUM CHLORIDE FLUSH SYRINGE 10 ML IV PRN (16:12)
[2018-06-25] MEDS ORDERED: MILK OF MAGNESIA PO PRN (16:12)
[2018-06-25] MEDS ORDERED: ZOFRAN IV PRN (16:12)
[2018-06-25] MEDS ORDERED: BENADRYL PO PRN (16:12)
[2018-06-25] MEDS ORDERED: ALUM-MAG HYDROX-SIMETH 200-200-20MG/5ML PO PRN (16:12)
[2018-06-25] MEDS ORDERED: AMBIEN PO PRN (16:12)
[2018-06-25] MEDS ORDERED: SENOKOT S PO PRN (16:12)
[2018-06-25] MEDS ORDERED: LACTATED RINGERS 1,000 ML IV SCH (20:00)
[2018-06-25] MEDS: TYLENOL PO PRN (20:14)
[2018-06-25] MEDS: NORMODYNE PO SCH (20:16)
[2018-06-26] MEDS: TYLENOL PO PRN (01:31)
[2018-06-26] MEDS: MAGNESIUM SULFATE 40GM/1000ML 40 GM/1,000 ML BAG IV SCH (01:33)
[2018-06-26] MEDS: NORMODYNE PO SCH (08:13)
--- NOTE | 2018-06-26 08:30 | Progress Note ---
Assessment and Plan A/P preee s/p mag for 24 hrs labetolol continued pain controlled s/p ct scan normal d/c home today with f/u next week Subjective - Subjective Date of service: 06/26/18 Principal diagnosis: s/p pree/HTN Interval history: This is a 32 yo Patient reports: appetite normal, voiding normally, pain well controlled, flatus, ambulating normally : doing well Objective - Vital Signs Latest vital signs: Vital Signs Temp Pulse Resp BP BP Pulse Ox 06/26/18 08:13 71 133/65 06/26/18 08:05 71 133/95 06/26/18 07:05 68 128/78 06/26/18 07:00 68 128/80 06/26/18 06:11 67 115/70 06/26/18 05:05 65 118/68 06/26/18 04:05 67 107/62 06/26/18 03:05 70 111/61 06/26/18 02:05 73 97/56 06/26/18 01:05 69 101/63 06/26/18 00:15 97.2 F L 18 06/26/18 00:05 75 112/67 06/25/18 23:05 67 96/57 06/25/18 22:05 68 100/58 06/25/18 21:05 66 111/69 06/25/18 20:16 71 113/68 06/25/18 20:05 97.6 F 18 06/25/18 20:04 71 113/68 06/25/18 18:04 70 94/52 06/25/18 16:15 97.0 F L 65 18 101/63 96 06/25/18 16:14 65 96 06/25/18 16:04 63 101/63 06/25/18 14:31 20 06/25/18 14:03 63 91/53 96 06/25/18 13:47 65 89/55 06/25/18 12:46 63 92/55 06/25/18 11:45 97.5 F L 69 20 109/65 109/65 98 06/25/18 09:32 20 06/25/18 09:25 61 110/69 06/25/18 08:55 63 123/77 06/25/18 08:36 74 96 06/25/18 08:31 83 95 06/25/18 08:30 61 82 L Intake and Output 06/25/18 06/26/18 06/26/18 23:59 07:59 15:59 Intake Total 986.25 910 Output Total 700 1350 Balance 286.25 -440 Intake: IV 866.25 910 Lactated Ringers 1,000 ml 866.25 @ 75 mls/hr IV DIRECT MANN Rx#:[id number] MAGNESIUM SULFATE 40GM/ 910 1000ML 40 gm In 1,000 ml @ 2 GM/HR 50 mls/hr IV DIRECT MNAN Rx#:[id number] Oral 120 Output: Urine 700 1350 Indwelling Catheter 700 1350 Other: Total, Intake Amount 120 Total, Output Amount 250 400 # Voids Indwelling Catheter 250 - Exam Breasts: Present: normal Cardiovascular: Present: Regular rate, Normal S1 Lungs: Present: Clear to auscultation, Normal air movement Abdomen: Present: normal appearance, soft, normal bowel sounds. Absent: distention, tenderness, guarding Uterus: Present: normal, firm, fundal height below umbilicus. Absent: bogginess, tenderness Extremities: Present: normal Deep Tendon Reflex Grade: Normal +2 Incision: Present: normal, dry, intact - Labs Labs: Abnormal lab results 06/25/18 06/25/18 06/26/18 Range/Units 12:43 18:05 00:23 Magnesium 6.00 H 7.40 H 7.80 H (1.7-2.3) mg/dL 06/26/18 Range/Units 06:04 Magnesium 7.70 H (1.7-2.3) mg/dL
--- NOTE | 2018-06-26 08:35 | Discharge Summary ---
Providers - Providers Date of Admission: 06/25/18 05:20 Date of discharge: 06/26/18 Attending physician: JACKIE AGUILERA MD Primary care physician: JACKIE AGUILERA MD Hospitalization Reason for admission: other ( preeclampisa ) Hospital course: Patient admitted for pree. given mag for 24 hrs. BP stable on labetolol. CT scan for abdominal pain was negative. d/c home today with f/u in 1 week Condition at discharge: Good Disposition: DC-01 TO HOME OR SELFCARE Plan - Discharge Medications Prescriptions: oxyCODONE /ACETAMINOPHEN [Percocet 5/325] 1 tab PO Q6HR PRN #30 tablet PRN Reason: Pain - Provider Discharge Summary Additional instructions: [] Smoking cessation referral if applicable(refer to patient education folder for contact #) [] Refer to [facility] Booklet Call your doctor immediately for: * Fever > 100.5 * Heavy vaginal bleeding ( >1 pad per hour) * Severe persistent headache * Shortness of breath * Reddened, hot, painful area to leg or breast * Drainage or odor from incision. * Keep incision clean and dry at all times and follow doctor's instructions regarding bathing/showering - Follow up plan Follow up: JACKIE AGUILERA MD [Primary Care Provider] - 7 Days
[2018-06-26] MEDS ORDERED: PRENATAL VITAMIN PO SCH (10:00)
[2018-06-26 11:26] VITALS: BP 107/67
== END 2018-06-26 12:00 | disposition home or self-care (01) | DRG 776 ==
LOC: LD 05:20
PROVIDERS: ADMIT Obstetrics & Gynecology; ATTEND Obstetrics & Gynecology
DX: O11.5 Pre-existing hypertension with pre-eclampsia, complicating the puerperium (principal); Z79.899 Other long term (current) drug therapy
CPT/HCPCS: 36415; 74177; 81001; 82565; 83615; 83735; 84450; 84460; 84550; 85025; G0378; J2270; J3475; J7120; Q9967

== ENCOUNTER 2020-03-23 21:28 | Emergency (ER) | payer BC ==
[2020-03-23 22:14] VITALS: BP 191/112
[2020-03-23] MEDS ORDERED: dexAMETHasone 20 MG/5 ML VIAL IV ONE (22:16)
[2020-03-23] MEDS ORDERED: ONDANSETRON 4 MG/2 ML INJ IV ONE (22:16)
[2020-03-23] MEDS ORDERED: KETOROLAC 30 MG/1 ML INJ IV ONE (22:16)
[2020-03-23] MEDS ORDERED: cefTRIAXone/NS 1 GM/50 ML 1 GM/50 ML BAG IV ONE (22:16)
[2020-03-23 23:37] LABS: Alanine Aminotransferase 15 units/L (7-56); Albumin 5.1 g/dL (3.9-5); Blood Urea Nitrogen 9 mg/dL (7-17); Calcium 10.4 mg/dL (8.4-10.2); Hemolysis Index 8
[2020-03-23 23:45] LABS: Basophils % (Auto) 0.2 % (0.0-1.8); Eosinophils # (Auto) 0.1 K/mm3 (0.0-0.4); Eosinophils % (Auto) 0.5 % (0.0-4.3); Hematocrit 39.7 % (30.3-42.9); Hemoglobin 13.9 gm/dl (10.1-14.3); Lymphocytes # (Auto) 1.9 K/mm3 (1.2-5.4); Lymphocytes % (Auto) 16.5 % (13.4-35.0); Mean Corpuscular HGB Conc 35 % (30-34); Mean Corpuscular Volume 96 fl (79-97); Monocytes # (Auto) 0.7 K/mm3 (0.0-0.8); Monocytes % (Auto) 6.3 % (0.0-7.3); Platelet Count 334 K/mm3 (140-440); Red Blood Count 4.13 M/mm3 (3.65-5.03); Red Cell Distribution Width 12.7 % (13.2-15.2)
[2020-03-23 23:56] LABS: BUN/Creatinine Ratio 13
[2020-03-24] MEDS ORDERED: ONDANSETRON 4 MG/2 ML INJ ONE (00:58)
[2020-03-24] MEDS ORDERED: dexAMETHasone 20 MG/5 ML VIAL ONE (00:58)
[2020-03-24] MEDS ORDERED: KETOROLAC 30 MG/1 ML INJ ONE (00:58)
[2020-03-24] MEDS ORDERED: cefTRIAXone/NS 1 GM/50 ML 1 GM/50 ML BAG IV ONE (01:01)
--- NOTE | 2020-03-24 03:09 | Cat Scan Report ---
CT MAXILLOFACIAL WITH INTRAVENOUS CONTRAST INDICATION / CLINICAL INFORMATION: RIGHT sided facial swelling x 2 days, possible dental abscess. TECHNIQUE: All CT scans at this location are performed using CT dose reduction for ALARA by means of automated e xposure control. Contrast dose report: Omnipaque 300: 100 mL administered intravenously. COMPARISON: None available. FINDINGS: SOFT TISSUE FACE: Extensive soft tissue swelling is noted involving the right cheek extending upward to involve the lower eyelid and medial canthal region. Soft tissue swelling is observed along the rig ht lateral aspect of the nose. Infiltrative changes extend inferiorly and laterally. Asymmetrical sof t tissue attenuation is seen just deep to the junction of the right alar side wall and cheek adjacent to the frontal process of the right maxilla. A phlegmon may be present in this location. I do not id entify a definite abscess. TEETH: A prominent dental julian destroys the crown of tooth #4. There is a small periapical lucency c onsistent with small periapical abscess in this location. I do not identify an adjacent subperiosteal abscess along the lateral wall of the right maxilla/superior alveolar ridge. Note is made of partial ly erupted third molars in the inferior alveolar ridge bilaterally. ORAL CAVITY: Beam hardening artifact from dental amalgam involving the teeth of the left inferior tiago eolar ridge limits evaluation of the tongue and portions of the floor the mouth. SALIVARY GLANDS: Parotid and submandibular salivary glands have an unremarkable appearance. FACIAL BONES: No fracture or other significant abnormality. PARANASAL SINUSES: Mucosal thickening is present at the base of the right maxillary sinus. Paranasal sinuses appear otherwise clear. NASAL CAVITY: No abnormality. ORBITS: Aside from right-sided preseptal soft tissue swelling no orbital abnormalities are identified . No abnormalities are seen in the post septal region. TEMPORAL BONES: Normal and symmetrical pneumatization of the mastoid air cells is observed. VISUALIZED INTRACRANIAL STRUCTURES: No significant abnormality. CONTRAST ADMINISTRATION: Enhancement of normal vascular structures is demonstrated. No areas of abnor mal contrast enhancement are identified. IMPRESSION: 1. Extensive facial cellulitis as described above. I do not identified an abscess. The infection ap pears to be centered near the right alar side wall. I do not identify a definite odontogenic origin. Signer Name: Uvaldo Shaikh MD Signed: 03/24/2020 3:04 AM Workstation Name: [id number]
--- NOTE | 2020-03-24 04:07 | Emergency Department Report ---
ED General Adult HPI - General Chief complaint: Dental/Oral Stated complaint: TOOTHACHE/FACIAL SWELLING Source: patient Mode of arrival: Ambulatory Limitations: No Limitations - History of Present Illness Initial comments: Patient is a 34-year-old -[place] female with a history of hypertension who presents to the ED with complaint of acute onset persistent severe right maxillary premolar molar toothache, swollen right maxillary gingiva and right zygomatic facial swelling for the last 4 days, worse in the last 12 hours. Patient states that she has been taking akwf-ydw-[id number] pain medications with no relief. Patient denies dysphagia, dysphonia, sore throat, nasal and sinus congestion, fever, chills, nausea, vomiting, chest pain, shortness of breath, change in vision, syncope, seizures, traumatic injury, change in vision or neck pain. MD Complaint: Right facial swelling; dental abscess; gingivitis -: Sudden, days(s) (4) Location: face Radiation: non-radiation Severity scale (0 -10): 8 Quality: aching, sharp Consistency: constant Improves with: none Worsens with: eating Associated Symptoms: denies other symptoms. denies: confusion, chest pain, cough, fever/chills, headaches, loss of appetite, malaise, nausea/vomiting, rash, seizure, shortness of breath, syncope, weakness Treatments Prior to Arrival: NSAID - Related Data Home Medications Medication Instructions Recorded Confirmed Last Taken amLODIPine [Norvasc] 5 mg PO DAILY 02/28/16 06/01/18 06/26/16 Previous Rx's Medication Instructions Recorded Last Taken Type Ibuprofen [Motrin] 600 mg PO Q8H PRN #15 tablet 06/27/16 Unknown Rx Loratadine/Pseudoephedrine 1 tab PO Q12H #30 tablet 06/27/16 Unknown Rx [Claritin-D 12HR] labetaloL [Labetalol 100mg TAB] 100 mg PO BID #30 tablet 03/29/18 Unknown Rx Ferrous Sulfate 325 mg PO BID #60 tablet. 05/30/18 Unknown Rx Ibuprofen [Motrin] 600 mg PO Q8H PRN #30 tablet 05/30/18 Unknown Rx labetaloL [Labetalol 100mg TAB] 100 mg PO BID #60 tablet 05/30/18 Unknown Rx oxyCODONE /ACETAMINOPHEN [Percocet 1 tab PO Q6HR PRN #30 tablet 05/30/18 Unknown Rx 5/325] labetaloL [Labetalol 200mg TAB] 200 mg PO BID #60 tablet 06/02/18 Unknown Rx oxyCODONE /ACETAMINOPHEN [Percocet 1 tab PO Q6HR PRN #30 tablet 06/26/18 Unknown Rx 5/325] Acetaminophen/Codeine [Tylenol 1 tab PO Q6H PRN #12 tab 03/24/20 Unknown Rx /Codeine # 3 tab] Clindamycin [Clindamycin CAP] 300 mg PO Q8HR #60 capsule 03/24/20 Unknown Rx Ketorolac [Toradol] 10 mg PO Q8H PRN #20 tablet 03/24/20 Unknown Rx Allergies Allergy/AdvReac Type Severity Reaction Status Date / Time No Known Allergies Allergy Verified 06/25/18 05:27 ED Review of Systems ROS: Stated complaint: TOOTHACHE/FACIAL SWELLING Other details as noted in HPI Constitutional: denies: chills, fever Eyes: denies: eye pain, eye discharge, vision change ENT: dental pain, other (Rights cheek swelling; right maxillary gingival swelling and pain). denies: ear pain, throat pain Respiratory: denies: cough, shortness of breath, wheezing Cardiovascular: denies: chest pain, palpitations Endocrine: no symptoms reported Gastrointestinal: denies: abdominal pain, nausea, diarrhea Genitourinary: denies: urgency, dysuria, discharge Musculoskeletal: denies: back pain, joint swelling, arthralgia Skin: denies: rash, lesions Neurological: denies: headache, weakness, paresthesias Psychiatric: denies: anxiety, depression Hematological/Lymphatic: denies: easy bleeding, easy bruising ED Past Medical Hx - Past Medical History Previous Medical History?: Yes Hx Hypertension: Yes Hx Diabetes: No Hx Deep Vein Thrombosis: No Hx Renal Disease: No Hx Sickle Cell Disease: No Hx Seizures: No Hx Asthma: No Hx HIV: No - Surgical History Past Surgical History?: Yes - Social History Smoking Status: Never Smoker Substance Use Type: None - Medications Home Medications: Home Medications Medication Instructions Recorded Confirmed Last Taken Type amLODIPine [Norvasc] 5 mg PO DAILY 02/28/16 06/01/18 06/26/16 History Ibuprofen [Motrin] 600 mg PO Q8H PRN #15 tablet 06/27/16 06/01/18 Unknown Rx Loratadine/Pseudoephedrine 1 tab PO Q12H #30 tablet 06/27/16 06/01/18 Unknown Rx [Claritin-D 12HR] labetaloL [Labetalol 100mg TAB] 100 mg PO BID #30 tablet 03/29/18 06/01/18 Unknown Rx Ferrous Sulfate 325 mg PO BID #60 tablet. 05/30/18 Unknown Rx Ibuprofen [Motrin] 600 mg PO Q8H PRN #30 tablet 05/30/18 Unknown Rx labetaloL [Labetalol 100mg TAB] 100 mg PO BID #60 tablet 05/30/18 Unknown Rx oxyCODONE /ACETAMINOPHEN [Percocet 1 tab PO Q6HR PRN #30 tablet 05/30/18 Unknown Rx 5/325] labetaloL [Labetalol 200mg TAB] 200 mg PO BID #60 tablet 06/02/18 Unknown Rx oxyCODONE /ACETAMINOPHEN [Percocet 1 tab PO Q6HR PRN #30 tablet 06/26/18 Unknown Rx 5/325] Acetaminophen/Codeine [Tylenol 1 tab PO Q6H PRN #12 tab 03/24/20 Unknown Rx /Codeine # 3 tab] Clindamycin [Clindamycin CAP] 300 mg PO Q8HR #60 capsule 03/24/20 Unknown Rx Ketorolac [Toradol] 10 mg PO Q8H PRN #20 tablet 03/24/20 Unknown Rx ED Physical Exam - General Limitations: No Limitations General appearance: alert, in no apparent distress - Head Head exam: Present: atraumatic, normocephalic, normal inspection - Eye Eye exam: Present: normal appearance, PERRL, EOMI Pupils: Present: normal accommodation - ENT ENT exam: Present: mucous membranes moist, TM's normal bilaterally, normal exter nal ear exam, other (Swollen, severely tender right maxillary gingiva; right zygomatic swelling) - Neck Neck exam: Present: normal inspection, full ROM. Absent: tenderness, lymphadenopathy - Respiratory Respiratory exam: Present: normal lung sounds bilaterally. Absent: respiratory distress, wheezes, rales, rhonchi, chest wall tenderness, accessory muscle use, decreased breath sounds - Cardiovascular Cardiovascular Exam: Present: regular rate, normal rhythm, normal heart sounds. Absent: systolic murmur, diastolic murmur, rubs, gallop - GI/Abdominal GI/Abdominal exam: Present: soft, normal bowel sounds. Absent: tenderness, guarding, hyperactive bowel sounds, hypoactive bowel sounds - Extremities Exam Extremities exam: Present: normal inspection, full ROM, normal capillary refill - Back Exam Back exam: Present: normal inspection, full ROM. Absent: tenderness, CVA tenderness (R), CVA tenderness (L), muscle spasm, paraspinal tenderness, vertebral tenderness - Neurological Exam Neurological exam: Present: alert, oriented X3, CN II-XII intact, normal gait, reflexes normal - Psychiatric Psychiatric exam: Present: normal affect, normal mood - Skin Skin exam: Present: warm, dry, intact, normal color. Absent: rash ED Course Vital Signs 03/23/20 22:11 Temperature 98.0 F Pulse Rate 94 H Respiratory 17 Rate Blood Pressure 191/112 O2 Sat by Pulse 99 Oximetry ED Medical Decision Making - Lab Data Result diagrams: 03/23/20 22:45 03/23/20 22:45 - Radiology Data Radiology results: report reviewed, [place] [id number] Cat Scan Report Signed Patient: LASHAWN MENDOZA MR#: [id number] : 1985 Acct:[id number] Age/Sex: 34 / F ADM Date: 03/23/20 Loc: ED Attending Dr: Ordering Physician: NIKO MANDEL Date of Service: 03/23/20 Procedure(s): CT facial bones w con Accession Number(s): [id number] cc: NIKO MANDEL CT MAXILLOFACIAL WITH INTRAVENOUS CONTRAST INDICATION / CLINICAL INFORMATION: RIGHT sided facial swelling x 2 days, possible dental abscess. TECHNIQUE: All CT scans at this location are performed using CT dose reduction for ALARA by means of automated exposure control. Contrast dose report: Omnipaque 300: 100 mL administered intravenously. COMPARISON: None available. FINDINGS: SOFT TISSUE FACE: Extensive soft tissue swelling is noted involving the right cheek extending upward to involve the lower eyelid and medial canthal region. Soft tissue swelling is observed along the right lateral aspect of the nose. Infiltrative changes extend inferiorly and laterally. Asymmetrical soft tissue attenuation is seen just deep to the junction of the right alar side wall and cheek adjacent to the frontal process of the right maxilla. A phlegmon may be present in this location. I do not identify a definite abscess. TEETH: A prominent dental julian destroys the crown of tooth #4. There is a small periapical lucency consistent with small periapical abscess in this location. I do not identify an adjacent subperiosteal abscess along the lateral wall of the right maxilla/superior alveolar ridge. Note is made of partially erupted third molars in the inferior alveolar ridge bilaterally. ORAL CAVITY: Beam hardening artifact from dental amalgam involving the teeth of the left inferior alveolar ridge limits evaluation of the tongue and portions of the floor the mouth. SALIVARY GLANDS: Parotid and submandibular salivary glands have an unremarkable appearance. FACIAL BONES: No fracture or other significant abnormality. PARANASAL SINUSES: Mucosal thickening is present at the base of the right maxillary sinus. Paranasal sinuses appear otherwise clear. NASAL CAVITY: No abnormality. ORBITS: Aside from right-sided preseptal soft tissue swelling no orbital abno rmalities are identified. No abnormalities are seen in the post septal region. TEMPORAL BONES: Normal and symmetrical pneumatization of the mastoid air cells is observed. VISUALIZED INTRACRANIAL STRUCTURES: No significant abnormality. CONTRAST ADMINISTRATION: Enhancement of normal vascular structures is demonstrated. No areas of abnormal contrast enhancement are identified. IMPRESSION: 1. Extensive facial cellulitis as described above. I do not identified an abscess. The infection appears to be centered near the right alar side wall. I do not identify a definite odontogenic origin. Signer Name: Uvaldo Shaikh MD Signed: 03/24/2020 3:04 AM Workstation Name: [id number] Transcribed By: Dictated By: Uvaldo Shaikh MD Electronically Authenticated By: Uvaldo Shaikh MD Signed Date/Time: 03/24/20 0304 DD/ 0229 TD/TT: - Medical Decision Making This is a 34-year-old -[place] female with a history of hypertension who presents to the ED with complaint of acute onset persistent severe right maxillary premolar molar toothache, swollen right maxillary gingiva and right zygomatic facial swelling for the last 4 days, worse in the last 12 hours. Patient states that she has been taking zmkc-brd-rcbbmek pain medications with no relief. In the ED, patient is alert and oriented x3 and is not in distress. Patient was treated for pain in the ED and also given antibiotics IV consisting of clindamycin and Rocephin. Patient was also treated for pain with Toradol. The facial CT scan with contrast showed extensive soft tissue swelling is noted involving the right cheek extending upward to involve the lower eyelid and medial canthal region. Soft tissue swelling is observed along the right lateral aspect of the nose. Infiltrative changes extend inferiorly and laterally. Asymmetrical soft tissue attenuation is seen just deep to the junction of the right alar side wall and cheek adjacent to the frontal process of the right maxilla. A phlegmon may be present in this location. I do not identify a def inite abscess. On reevaluation, patient's pain is well controlled with medications. Patient was discharged home on pain medications and antibiotics and advised to follow-up with her dentist or primary care physician in 7 to 10 days for reevaluation. Patient was advised to return to the ED immediately if symptoms get worse. - Differential Diagnosis Facial cellulitis; dental abscess; gingivitis; dental caries; sinusitis Critical care attestation.: If time is entered above; I have spent that time in minutes in the direct care of this critically ill patient, excluding procedure time. ED Disposition Clinical Impression: Facial cellulitis, Dental abscess, Acute gingivitis Disposition: DC- TO HOME OR SELFCARE Is pt being admited?: No Does the pt Need Aspirin: No Condition: Stable Instructions: Skin Abscess, [id number], Dental Abscess, [id number], Cellulitis, Adult, [id number] Additional Instructions: Take medication with food, drink plenty of fluids and follow-up with your primary care physician or dentist in 7 to 10 days for reevaluation. Return to the ED immediately if symptoms get worse. Prescriptions: Clindamycin [Clindamycin CAP] 300 mg PO Q8HR #60 capsule Ketorolac [Toradol] 10 mg PO Q8H PRN #20 tablet PRN Reason: Pain Acetaminophen/Codeine [Tylenol /Codeine # 3 tab] 1 tab PO Q6H PRN #12 tab PRN Reason: Pain , Severe (7-10) Referrals: [facility] [Outside] - 3-5 Days [facility] [Outside] - 3-5 Days Forms: Work/School Release Form(ED) Time of Disposition: 04:14 Print Language: SPANISH
== END 2020-03-24 04:45 | disposition home or self-care (01) ==
LOC: ED 21:28
DX: L03.211 Cellulitis of face (principal); K04.7 Periapical abscess without sinus; K05.00 Acute gingivitis, plaque induced; I10 Essential (primary) hypertension; Z79.899 Other long term (current) drug therapy
CPT/HCPCS: 36415; 70487; 80053; 85025; 96365; 96367; 96375; 99284; J0696; J1100; J1885; J2405; Q9967